=== PATIENT | male | born 1940 | race Caucasian/White ===

== ENCOUNTER 2017-04-09 04:09 | Observation (INO) | payer MEDICARE, BC ==
[2017-04-09] VITALS (12 sets, daily range): BP systolic 107–166; BP diastolic 55–116; PULSE 56–142; RESP 15–20; TEMP 96.2–97.6; O2SAT 97–99
--- NOTE | 2017-04-09 04:25 | PD ---
HPI Chief Complaint: atrial fibrillation Time Seen by Provider: 04:15 Travel History International Travel<30 days: No Contact w/Intl Traveler<30days: No Traveled to known affect area: No History of Present Illness HPI The patient is a 76-year-old male with a history of paroxysmal atrial fibrillation who complains for the past 3 hours atrial fibrillation. He usually gets chest discomfort and back discomfort when he gets atrial fibrillation. He often gets admitted for this. He comes from [place] and this is his first episode of atrial fibrillation here. He takes elk was regularly as his blood thinner, metoprolol for rate control, Rythmol for rate control and simvastatin. As per instructions by his real estate associate attorney, he took 2 150 mg Rythmol at the beginning of the atrial fibrillation. The patient does have a pacemaker in place. [facility] Social History Tobacco Use: No Allergies-Medications (Allergen,Severity, Reaction): Coded Allergies: No Known Allergies (Unverified , 04/09/17) Reported Meds & Prescriptions Reported Meds & Active Scripts Active Reported Metoprolol Succinate ER 24 HR (Metoprolol Succinate) 25 Mg Tab 25 Mg PO DAILY Eliquis (Apixaban) 5 Mg Tab 5 Mg PO BID Simvastatin 40 Mg Tab 40 Mg PO HS Propafenone (Propafenone HCl) 150 Mg Tab 150 Mg PO Q8HR Omeprazole 20 Mg Tab 20 Mg PO DAILY Review of Systems Except as stated in HPI: all other systems reviewed are Neg Physical Exam Narrative GENERAL: The patient is alert, oriented 3 and slight apparent distress with his chest discomfort. His vital signs initially showed pulse rate of 142, temperature 97.6 with blood pressure 158/116 and oximetry 98%. Shortly after 20 mg of Cardizem IV his vital signs normalized. SKIN: Focused skin assessment warm/dry. HEAD: Atraumatic. Normocephalic. EYES: Pupils equal and round. No scleral icterus. No injection or drainage. ENT: No nasal bleeding or discharge. Mucous membranes pink and moist. NECK: Trachea midline. No JVD. CARDIOVASCULAR: Atrial fibrillation with RVR ranging from 130 to 150. No murmur appreciated. RESPIRATORY: No accessory muscle use. Clear to auscultation. Breath sounds equal bilaterally. GASTROINTESTINAL: Abdomen soft, non-tender, nondistended. Hepatic and splenic margins not palpable. MUSCULOSKELETAL: No obvious deformities. No clubbing. No cyanosis. No edema. NEUROLOGICAL: Awake and alert. No obvious cranial nerve deficits. Motor grossly within normal limits. Normal speech. PSYCHIATRIC: Appropriate mood and affect; insight and judgment normal. Data Data Last Documented VS Vital Signs Date Time Temp Pulse Resp B/P (MAP) Pulse Ox O2 Delivery O2 Flow Rate FiO2 04/09/17 04:50 68 20 108/73 (85) 98 Nasal Cannula 2.00 04/09/17 04:10 97.6 Orders Orders Electrocardiogram (04/09/17 04:17) Basic Metabolic Panel (Bmp) (04/09/17 04:17) B-Type Natriuretic Peptide (04/09/17 04:17) Complete Blood Count With Diff (04/09/17 04:17) Magnesium (Mg) (04/09/17 04:17) Prothrombin Time / Inr (Pt) (04/09/17 04:17) Act Partial Throm Time (Ptt) (04/09/17 04:17) Troponin I (04/09/17 04:17) Chest, Single Ap (04/09/17 04:17) Ecg Monitoring (04/09/17 04:17) Bilateral Bp Monitoring (04/09/17 04:17) Iv Access Insert/Monitor (04/09/17 04:17) Oximetry (04/09/17 04:17) Oxygen Administration (04/09/17 04:17) Sodium Chloride 0.9% Flush (Ns Flush) (04/09/17 04:30) Vital Signs (Adult) Q15MX4,Q4H (04/09/17 04:17) Information Assurance Manager / Telemetry ELBA.Q8H (04/09/17 04:17) Cardiac Rhythm ELBA.Q8H (04/09/17 04:17) Notify Dr: Other (04/09/17 04:17) Diltiazem Inj (Cardizem Inj) (04/09/17 04:30) Diltiazem Inj (Cardizem Inj) (04/09/17 04:45) Labs Laboratory Tests Test 04/09/17 04:15 White Blood Count 7.1 TH/MM3 Red Blood Count 4.45 MIL/MM3 Hemoglobin 13.1 GM/DL Hematocrit 40.5 % Mean Corpuscular Volume 91.0 FL Mean Corpuscular Hemoglobin 29.4 PG Mean Corpuscular Hemoglobin Concent 32.3 % Red Cell Distribution Width 13.3 % Platelet Count 237 TH/MM3 Mean Platelet Volume 7.8 FL Neutrophils (%) (Auto) 58.4 % Lymphocytes (%) (Auto) 26.3 % Monocytes (%) (Auto) 10.3 % Eosinophils (%) (Auto) 4.4 % Basophils (%) (Auto) 0.6 % Neutrophils # (Auto) 4.2 TH/MM3 Lymphocytes # (Auto) 1.9 TH/MM3 Monocytes # (Auto) 0.7 TH/MM3 Eosinophils # (Auto) 0.3 TH/MM3 Basophils # (Auto) 0.0 TH/MM3 CBC Comment DIFF FINAL Differential Comment Prothrombin Time 10.5 SEC Prothromb Time International Ratio 1.0 RATIO Activated Partial Thromboplast Time 27.1 SEC Blood Urea Nitrogen 17 MG/DL Creatinine 0.96 MG/DL Random Glucose 113 MG/DL Calcium Level 8.5 MG/DL Magnesium Level 2.2 MG/DL Sodium Level 141 MEQ/L Potassium Level 3.7 MEQ/L Chloride Level 107 MEQ/L Carbon Dioxide Level 26.4 MEQ/L Anion Gap 8 MEQ/L Estimat Glomerular Filtration Rate 76 ML/MIN Troponin I LESS THAN 0.02 NG/ML B-Type Natriuretic Peptide 92 PG/ML MDM Medical Decision Making Medical Screen Exam Complete: Yes Emergency Medical Condition: Yes Medical Record Reviewed: Yes Interpretation(s) The GFR is 76 but the basic metabolic profile is normal. The magnesium is normal. The troponin I is less than 0.02. The BNP is normal at 92. The chest x-ray shows mildly prominent cardiac silhouette but no other acute cardiopulmonary disease is noted. The coagulation profile is normal. Differential Diagnosis Atrial fibrillation with rapid ventricular response, acute coronary syndrome, electrolyte disorder, coagulopathy from Eliquis. Narrative Course 20 mg of Cardizem was given IV and the rate slowed to about 80 bpm, still atrial fibrillation. Occasionally it slows to where the pacemaker takes over. The blood pressure lowered to 107/63. The patient's chest discomfort decreased. Physician Communication Physician Communication I discussed the patient with Dr. Grant, the patient will be admitted to her. Diagnosis Primary Impression: Atrial fibrillation with rapid ventricular response Admitting Information Admitting Physician Requests: Admit Los Antoine MD Apr 09, 2017 04:25
[2017-04-09] MEDS ORDERED: PROP150T PO (04:28)
[2017-04-09] MEDS ORDERED: METO1TAB42 PO (04:28)
[2017-04-09] MEDS ORDERED: SIMV40TA PO (04:28)
[2017-04-09] MEDS ORDERED: APIX5TAB PO (04:28)
[2017-04-09] MEDS ORDERED: OMEP20TA93 PO (04:28)
[2017-04-09] MEDS ORDERED: DILTIAZEM INJ 125 MG in SODIUM CHLORIDE 0.9% INJ 100 ML IV PRN (04:30)
[2017-04-09] MEDS ORDERED: SODIUM CHLORIDE 0.9% FLUSH 10 ML FLUSH IVF PRN (04:30)
[2017-04-09 04:34] LABS: AUTOMATED NEUTROPHIL # 4.2 TH/MM3 (1.8-7.7); BASOPHIL % 0.6 % (0.0-2.0); EOSINOPHIL # 0.3 TH/MM3 (0-0.4); EOSINOPHIL % 4.4 % (0.0-4.0); HEMATOCRIT 40.5 % (39.0-51.0); HEMOGLOBIN 13.1 GM/DL (13.0-17.0); LYMPH % 26.3 % (9.0-44.0); LYMPHOCYTE # 1.9 TH/MM3 (1.0-4.8); MEAN CORPUSCULAR HEMOGLOBIN 29.4 PG (27.0-34.0); MEAN CORPUSCULAR HGB CONC 32.3 % (32.0-36.0); MEAN PLATELET VOLUME 7.8 FL (7.0-11.0); MONO % 10.3 % (0.0-8.0); MONOCYTE # 0.7 TH/MM3 (0-0.9); NEUT % 58.4 % (16.0-70.0); PLATELET COUNT 237 TH/MM3 (150-450); RED BLOOD COUNT 4.45 MIL/MM3 (4.50-5.90); RED CELL DISTRIBUTION WIDTH 13.3 % (11.6-17.2); WHITE BLOOD COUNT 7.1 TH/MM3 (4.0-11.0)
[2017-04-09] MEDS ORDERED: DILTIAZEM HCL 25 MG/5 ML VIAL IV PUSH PRN (04:45)
[2017-04-09 04:48] LABS: CHLORIDE 107 MEQ/L (98-107); SODIUM (NA) 141 MEQ/L (136-145)
[2017-04-09 04:50] LABS: CALCIUM 8.5 MG/DL (8.5-10.1)
[2017-04-09 04:51] LABS: BICARBONATE 26.4 MEQ/L (21.0-32.0); BLOOD UREA NITROGEN 17 MG/DL (7-18); GLUCOSE,RANDOM 113 MG/DL (74-106); MAGNESIUM 2.2 MG/DL (1.5-2.5)
[2017-04-09 04:52] LABS: PROTHROMBIN TIME - PATIENT 10.5 SEC (9.8-11.6)
[2017-04-09 04:54] LABS: CREATININE 0.96 MG/DL (0.60-1.30); GLOMERULAR FILTRATION RATE 76 ML/MIN (>89)
--- NOTE | 2017-04-09 04:58 | RADRPT ---
EXAM DATE/TIME: 04/09/2017 04:41 [facility] COMPARISON: No previous studies available for comparison. INDICATIONS : Chest discomfort, irregular heartbeat for 3 hours MEDICAL HISTORY : Afib SURGICAL HISTORY : Pacemaker. ENCOUNTER: Initial ACUITY: 1 day PAIN SCORE: 0/10 LOCATION: Bilateral chest FINDINGS: Single AP view of the chest. Dual-lead cardiac pacemaker in place. Lungs are clear. Mild cardiac silh ouette enlargement. No evidence of pleural effusion or pneumothorax. CONCLUSION: Mildly prominent cardiac silhouette. No other acute cardiopulmonary disease identified. Surya Griffin MD on April 09, 2017 at 4:55 Board Certified Radiologist. This report was verified electronically.
[2017-04-09 04:59] LABS: TROPONIN I LESS THAN 0.02 NG/ML (0.02-0.05)
[2017-04-09] MEDS ORDERED: BISACODYL 10 MG SUPP RECTAL PRN (05:30)
[2017-04-09] MEDS ORDERED: SENNOSIDES 8.6 MG TAB PO PRN (05:30)
[2017-04-09] MEDS ORDERED: NALOXONE HCL 0.4 MG/ML AMP IV PUSH PRN (05:30)
[2017-04-09] MEDS ORDERED: ONDANSETRON HCL 4 MG/2 ML VIAL IVP PRN (05:30)
[2017-04-09] MEDS ORDERED: MAGNESIUM HYDROXIDE SUSP 30 ML CUP PO PRN (05:30)
[2017-04-09] MEDS ORDERED: ACETAMINOPHEN 325 MG TAB PO PRN (05:30)
[2017-04-09] MEDS ORDERED: MORPHINE SULFATE 2 MG/ML INJ IV PUSH PRN (05:30)
[2017-04-09] MEDS ORDERED: ACETAMINOPHEN/HYDROcodone 325 MG/5 MG TAB PO PRN (05:30)
[2017-04-09] MEDS ORDERED: PROPAFENONE HCL 150 MG TAB PO SCH (06:00)
[2017-04-09] MEDS ORDERED: SODIUM CHLORIDE 0.9% FLUSH 10 ML FLUSH IV FLUSH SCH (09:00)
[2017-04-09] MEDS ORDERED: PANTOPRAZOLE SOD 20 MG DELAYED RELEASE TAB PO SCH (09:00)
[2017-04-09] MEDS ORDERED: APIXABAN 5 MG TABLET PO SCH (09:00)
[2017-04-09] MEDS ORDERED: METOPROLOL SUCCINATE 25 MG EXTENDED RELEASE TAB PO SCH (09:00)
--- NOTE | 2017-04-09 10:28 | HHI.DCPOC ---
Discharge Care Plan Diagnosis: (1) Atrial fibrillation with rapid ventricular response Goals to Promote Your Health * To prevent worsening of your condition and complications * To maintain your health at the optimal level Directions to Meet Your Goals Take your medications as prescribed Follow your dietary instruction Follow activity as directed Keep your appointments as scheduled Take your immunizations and boosters as scheduled If your symptoms worsen call your PCP, if no PCP go to Urgent Care Center or Emergency Room Smoking is Dangerous to Your Health. Avoid second hand smoke Call the 24-hour hour crisis hotline for domestic abuse at Jean-Pierre Antoine Apr 09, 2017 10:28
[2017-04-09 10:43] LABS: TROPONIN I 0.04 NG/ML (0.02-0.05)
--- NOTE | 2017-04-09 11:58 | HHI.HP ---
HPI Service [facility] Primary Care Physician Non-Staff Admission Diagnosis atrial fibrillation with rapid ventricular response Diagnoses: (1) Paroxysmal atrial fibrillation Diagnosis: Principal (2) Atrial fibrillation with rapid ventricular response Diagnosis: Principal Chief Complaint: Chest pain, palpitations Travel History International Travel<30 Days: No Contact w/Intl Traveler <30 Da: No Traveled to Known Affected Are: No History of Present Illness Written by Jean-Pierre Antoine, acting as scribe for Dr. Campuzano on 04/09/17 at 11: 50. 76 year-old male with known history of hypertension, hyperlipidemia, paroxysmal atrial fibrillation, gastroesophageal reflux, history of prostate cancer who presented to hospital because of chest discomfort and palpitations. Patient states he does have history of paroxysmal atrial fibrillation and he originally is from [place]. He does have a destination specialist in [place] where he resides and he is usually told to take 2 of his Rythmol and see if his discomfort goes away. Patient woke up at 1:30 this morning with his chest discomfort which he describes as a sharp type pain in his chest radiating into his back and right arm with the feeling of his heart racing. He took his Rythmol without any benefit so he came to the hospital for evaluation. Patient states that he does get one episode of these symptoms approximately every 3-4 months. And most the time the medication works, however he was hospitalized in January where it took them one half days in order to get his heart rate corrected at that time. Patient recently saw his destination specialist who recommended possible cardiac ablation and the patient is to think about that at this time. The patient at this time feels quite well. No longer experiencing any discomfort. The patient was given Cardizem IV 1 time emergency department with conversion to sinus rhythm and heart rate controlled. Patient does not have a destination specialist in the area and would like to have one locally. The patient denied any diaphoresis, short of breath, dizziness. Review of Systems Cardiovascular: COMPLAINS OF: Chest pain, Palpitations Except as stated in HPI: all other systems reviewed are Neg Past Family Social History Past Medical History Hypertension Hyperlipidemia Paroxysmal atrial fibrillation Gastroesophageal reflux History of stomach ulcer History of prostate cancer Chronic neck pain/arthritis with upper extremity paresthesia Past Surgical History EGD/colonoscopy 2 years ago Cardiac catheterization 7 years ago Prostatic seed placement Biventricular pacemaker placement Appendectomy Hernia repair Reported Medications Reported Meds & Active Scripts Active Reported Metoprolol Succinate ER 24 HR (Metoprolol Succinate) 25 Mg Tab 25 Mg PO DAILY Eliquis (Apixaban) 5 Mg Tab 5 Mg PO BID Simvastatin 40 Mg Tab 40 Mg PO HS Propafenone (Propafenone HCl) 150 Mg Tab 150 Mg PO Q8HR Omeprazole 20 Mg Tab 20 Mg PO DAILY Allergies: Coded Allergies: No Known Allergies (Unverified , 04/09/17) Family History Reviewed and significant for mother having a heart attack at age 85 Social History Patient states that he drinks 2 glasses of wine daily. He states that he makes his own wine. Denies any tobacco or illicit drugs Physical Exam Vital Signs Vital Signs Date Time Temp Pulse Resp B/P (MAP) Pulse Ox O2 Delivery O2 Flow Rate FiO2 04/09/17 08:12 Room Air 04/09/17 08:00 96.3 56 16 152/85 (107) 98 04/09/17 07:39 60 04/09/17 07:38 04/09/17 07:08 60 18 131/78 (95) 99 Nasal Cannula 2.00 04/09/17 07:01 64 99 Nasal Cannula 2.00 04/09/17 06:38 60 20 123/71 (88) 98 Nasal Cannula 2.00 04/09/17 06:00 60 20 145/82 (103) 98 Nasal Cannula 2.00 04/09/17 05:30 60 20 129/77 (94) 97 Nasal Cannula 2.00 04/09/17 04:59 72 20 109/71 (84) 97 04/09/17 04:50 68 20 108/73 (85) 98 Nasal Cannula 2.00 04/09/17 04:37 20 98 Nasal Cannula 2.00 04/09/17 04:35 71 20 107/63 (78) 98 Nasal Cannula 2.00 04/09/17 04:29 131 20 166/82 (110) 98 Nasal Cannula 2.00 158/116 (130) 04/09/17 04:29 98 Nasal Cannula 2.00 04/09/17 04:10 97.6 142 20 158/116 (130) 98 Physical Exam GENERAL: Well-developed, well-nourished, in no acute distress. alert and orientated HEENT: Head is normocephalic without any lesions or masses noted. Facial features are symmetric. Eyes: Pupils equal round reactive to light. Extraocular muscles are intact. Conjunctivae were clear. Oropharyngeal: Pharynx without any erythema edema. Tongue is midline without deviation. Buccal mucosa is moist without any masses or lesions NECK: Supple without any masses. Trachea midline no deviation. No JVD, no bruits are appreciated CARDIAC: Regular rhythm, regular rate. S1/S2 are heard. No murmurs gallops or rubs. LUNGS: Clear to auscultation bilaterally. No wheeze, rhonchi or rales. No use of accessory muscles on inspiration or expiration. ABDOMEN: Soft, nontender. Nondistended. Bowel sounds heard in all 4 quadrants. No organomegaly or masses. Negative rebound, negative guarding EXTREMITIES: No edema, pulses are equal bilaterally. No cyanosis or clubbing NEUROLOGY: Mood and affect appear appropriate. Cranial nerves II through XII grossly intact. Muscle strength 5/5 in upper and lower extremities bilaterally. Deep tendon reflexes are 2+ in upper and lower extremities bilaterally. Laboratory Laboratory Tests Test 04/09/17 04:15 04/09/17 10:10 White Blood Count 7.1 Red Blood Count 4.45 Hemoglobin 13.1 Hematocrit 40.5 Mean Corpuscular Volume 91.0 Mean Corpuscular Hemoglobin 29.4 Mean Corpuscular Hemoglobin Concent 32.3 Red Cell Distribution Width 13.3 Platelet Count 237 Mean Platelet Volume 7.8 Neutrophils (%) (Auto) 58.4 Lymphocytes (%) (Auto) 26.3 Monocytes (%) (Auto) 10.3 Eosinophils (%) (Auto) 4.4 Basophils (%) (Auto) 0.6 Neutrophils # (Auto) 4.2 Lymphocytes # (Auto) 1.9 Monocytes # (Auto) 0.7 Eosinophils # (Auto) 0.3 Basophils # (Auto) 0.0 CBC Comment DIFF FINAL Differential Comment Prothrombin Time 10.5 Prothromb Time International Ratio 1.0 Activated Partial Thromboplast Time 27.1 Blood Urea Nitrogen 17 Creatinine 0.96 Random Glucose 113 Calcium Level 8.5 Magnesium Level 2.2 Sodium Level 141 Potassium Level 3.7 Chloride Level 107 Carbon Dioxide Level 26.4 Anion Gap 8 Estimat Glomerular Filtration Rate 76 Troponin I LESS THAN 0.02 0.04 B-Type Natriuretic Peptide 92 Total Creatine Kinase 43 Result Diagram: 04/09/1741404/09/17414 Imaging Last Impressions Chest X-Ray 04/09/17416 Signed Impressions: Service Date/Time: Sunday, April 09, 2017 04:41 - CONCLUSION: Mildly prominent cardiac silhouette. No other acute cardiopulmonary disease identified. MD Gabe Mcdonald VTE Risk Assessment Caprini VTE Risk Assessment: Mod/High Risk (score >= 2) Caprini Risk Assessment Model Point Value = 1 Point Value = 2 Point Value = 3 Point Value = 5 Age 41-60 Minor surgery BMI > 25 kg/m2 Swollen legs Varicose veins or History of unexplained or recurrent spontaneous Oral contraceptives or hormone replacement Sepsis (< 1 month) Serious lung disease, including pneumonia (< 1 month) Abnormal pulmonary function Acute myocardial infarction Congestive heart failure (< 1 month) History of inflammatory bowel disease Medical patient at bed rest Age 61-74 Arthroscopic surgery Major open surgery (> 45 min) Laparoscopic surgery (> 45 min) Malignancy Confined to bed (> 72 hours) Immobilizing plaster cast Central venous access Age >= 75 History of VTE Family history of VTE Factor V Leiden Prothrombin [id number] Lupus anticoagulant Anticardiolipin antibodies Elevated serum homocysteine Heparin-induced thrombocytopenia Other congenital or acquired thrombophilia Stroke (< 1 month) Elective arthroplasty Hip, pelvis, or leg fracture Acute spinal cord injury (< 1 month) Prophylaxis Regimen Total Risk Factor Score Risk Level Prophylaxis Regimen 0-1 Low Early ambulation 2 Moderate Order ONE of the following: *Sequential Compression Device (SCD) *Heparin 5000 units SQ BID 3-4 Higher Order ONE of the following medications: *Heparin 5000 units SQ TID *Enoxaparin/Lovenox 40 mg SQ daily (WT < 150 kg, CrCl > 30 mL/min) *Enoxaparin/Lovenox 30 mg SQ daily (WT < 150 kg, CrCl > 10-29 mL/min) *Enoxaparin/Lovenox 30 mg SQ BID (WT < 150 kg, CrCl > 30 mL/min) AND/OR *Sequential Compression Device (SCD) 5 or more Highest Order ONE of the following medications: *Heparin 5000 units SQ TID (Preferred with Epidurals) *Enoxaparin/Lovenox 40 mg SQ daily (WT < 150 kg, CrCl > 30 mL/min) *Enoxaparin/Lovenox 30 mg SQ daily (WT < 150 kg, CrCl > 10-29 mL/min) *Enoxaparin/Lovenox 30 mg SQ BID (WT < 150 kg, CrCl > 30 mL/min) AND *Sequential Compression Device (SCD) Assessment and Plan Assessment and Plan Paroxysmal atrial fibrillation, presenting with atrial fibrillation with RVR, heart rate 142 Status post Cardizem 20 mg IV 1 with conversion to normal sinus rhythm and rate control Patient already anticoagulated on Eliquis, will continue that at this time Serial cardiac enzymes do not indicate any troponin elevation or cardiac injury Discuss with patient to continue his regular home medication regimen Will arrange for patient have local destination specialist for outpatient follow-up Hypertension, hyperlipidemia continue home medications DVT prevention Eliquis Discharge disposition Discharge home in stable condition Activity: Ad werner. Diet: Healthy heart diet Medications per medication reconciliation Follow-up primary medical doctor in one week, will arrange for patient to have cardiac outpatient evaluation Code Status Full code Medical Decision Making Impression and Plan This note was transcribed by sharla [[email or web address]]. I, Dr. Natalie Campuzano personally performed the history, physical exam, and medical decision making; and confirmed the accuracy of the information in the transcribed note. As above, discussed with patient bedside Authenticated by Dr. Natalie Campuzano on 04/09/17 at 12:34. Jean-Pierre Antoine Apr 09, 2017 11:58 Natalie Campuzano MD Apr 09, 2017 12:34
[2017-04-09] MEDS ORDERED: PRAVASTATIN SOD 40 MG TAB PO SCH (21:00)
--- NOTE | 2017-04-09 21:16 | EKG ---
Date Performed: 04/09/2017 Time Performed: 10:15:06 PTAGE: 76 years EKG: ELECTRONIC ATRIAL PACEMAKER INFERIOR MYOCARDIAL INFARCTION ABNORMAL ECG PREVIOUS TRACING : 04/09/2017 04.32 Compared to prior tracing no significant change DOCTOR: Genaro Mckeon Interpretating Date/Time 04/09/2017 21:16:41
--- NOTE | 2017-04-09 21:49 | EKG ---
Date Performed: 04/09/2017 Time Performed: 04:32:06 PTAGE: 76 years EKG: ATRIAL FIBRILLATION WITH APPROPRIATE SENSING AND CAPTURE OF VENTRICULAR PACEMAKER INFERIOR MYOCARDIAL INFARCTION ABNORMAL ECG PREVIOUS TRACING : 04/09/2017 04.12 Compared to the previous tracing afib with rapid ventricula r respose is no longer present DOCTOR: Genaro Mckeon Interpretating Date/Time 04/09/2017 21:48:34
--- NOTE | 2017-04-09 21:51 | EKG ---
Date Performed: 04/09/2017 Time Performed: 04:12:36 PTAGE: 76 years EKG: ATRIAL FIBRILLATION WITH RAPID VENTRICULAR RESPONSE NONSPECIFIC ST & T-WAVE ABNORMALITY ABN ORMAL RHYTHM ECG WARNING: DATA QUALITY MAY AFFECT INTERPRETATION INTERPRETATION BASED ON A DEFAULT AG E OF 40 YEARS PREVIOUS TRACING : 04/13/2005 10.37 Compared to the previous tracing afib with RVR is new and atrial paced rhythm is no longer present DOCTOR: Genaro Mckeon Interpretating Date/Time 04/09/2017 21:50:49
== END 2017-04-09 11:55 | disposition home or self-care (01) ==
LOC: PHED 04:09 → PHEDA 05:29 → INTOOBSV 05:29 → PH3B 07:31
PROVIDERS: ADMIT Hospitalist; ATTEND Hospitalist
DX: I48.0 Paroxysmal atrial fibrillation (principal); I10 Essential (primary) hypertension; E78.5 Hyperlipidemia, unspecified; K21.9 Gastro-esophageal reflux disease without esophagitis; Z79.01 Long term (current) use of anticoagulants; Z95.0 Presence of cardiac pacemaker; Z85.46 Personal history of malignant neoplasm of prostate; Z87.11 Personal history of peptic ulcer disease
CPT/HCPCS: 71045; 80048; 82550; 83735; 83880; 84484; 85025; 85610; 85730; 93005; 96374; 99285; G0378